=== PATIENT | female | born 1960 | race Caucasian/White ===

== ENCOUNTER 2019-01-30 12:18 | Emergency (ER) | payer BC ==
--- NOTE | 2019-01-30 13:04 | EDM.PDOC ---
ED HPI GENERAL MEDICAL PROBLEM - General Chief Complaint: General Stated Complaint: BLLOD PRESSURE,DISSINESS,BLURED VISION Time Seen by Provider: 01/30/19 12:57 Source of Information: Reports: Patient History Limitations: Reports: No Limitations - History of Present Illness INITIAL COMMENTS - FREE TEXT/NARRATIVE: Patient is a 58-year-old female who presents to the emergency department this afternoon with a complaint of high blood pressure. She states that she had a headache earlier today, presenting to [facility] and they took her blood pressure. Blood pressure was said to be 180s over 100. They suggested she be seen in the ER. Upon presentation to ER. Her blood pressure evaluation showed 150s over 100. Patient is currently on 20 mg lisinopril daily, and 25 mg metoprolol twice a day. Patient is also on 1000 metformin twice a day. Patient denies any recent change in medication. Patient admits to headache over the last week, but adenies chest pain, shortness of breath, blurry vision, nausea, vomiting, diarrhea, lower extremity edema, out of country travel, or any head injury. Duration: Hour(s): Quality: Reports: Other (Mild headache, but Denies any chest pain) Improves with: Reports: None Worsens with: Reports: None Associated Symptoms: Reports: Headaches. Denies: Chest Pain, Nausea/Vomiting, Shortness of Breath - Related Data Allergies Allergy/AdvReac Type Severity Reaction Status Date / Time Penicillins Allergy Hives Verified 01/30/19 12:32 Home Meds: Home Meds Lisinopril [Prinivil] 20 mg PO DAILY 01/30/19 [History] Metoprolol Tartrate 25 mg PO DAILY 01/30/19 [History] Simvastatin 20 mg PO DAILY 01/30/19 [History] hydroCHLOROthiazide [Hydrochlorothiazide] 25 mg PO DAILY PRN 01/30/19 [History] metFORMIN HCl [Metformin HCl] 1,000 mg PO BID 01/30/19 [History] ED ROS GENERAL - Review of Systems Review Of Systems: ROS reveals no pertinent complaints other than HPI. Constitutional: Reports: No Symptoms HEENT: Reports: No Symptoms Respiratory: Reports: No Symptoms Cardiovascular: Reports: No Symptoms. Denies: Chest Pain Endocrine: Reports: No Symptoms GI/Abdominal: Reports: No Symptoms : Reports: No Symptoms Musculoskeletal: Reports: No Symptoms Skin: Reports: No Symptoms Neurological: Reports: Headache Psychiatric: Reports: No Symptoms Hematologic/Lymphatic: Reports: No Symptoms Immunologic: Reports: No Symptoms ED EXAM, GENERAL - Physical Exam Exam: See Below Exam Limited By: No Limitations General Appearance: Alert, WD/WN, No Apparent Distress Eye Exam: Bilateral Eye: Normal Inspection Nose: Normal Inspection, Normal Mucosa Throat/Mouth: Normal Inspection, Normal Oropharynx, No Airway Compromise Head: Atraumatic, Normocephalic Neck: Normal Inspection, Supple Respiratory/Chest: No Respiratory Distress, Lungs Clear, Normal Breath Sounds, No Accessory Muscle Use, Chest Non-Tender Cardiovascular: Normal Peripheral Pulses, Regular Rate, Rhythm, No Murmur, No Rub GI/Abdominal: Normal Bowel Sounds, Soft, Non-Tender, No Abnormal Bruit Back Exam: Normal Inspection. No: CVA Tenderness (L), CVA Tenderness (R) Extremities: Normal Inspection, No Pedal Edema Neurological: Alert, Oriented, CN II-XII Intact, Normal Cognition, No Motor/ Sensory Deficits Psychiatric: Normal Affect, Normal Mood Skin Exam: Warm, Dry, Intact, Normal Color, No Rash Lymphatic: No Adenopathy Course - Vital Signs Last Recorded V/S: Last Vital Signs Temp 96.7 F 01/30/19 12:22 Pulse 75 01/30/19 13:25 Resp 14 01/30/19 13:25 BP 146/96 H 01/30/19 13:25 Pulse Ox 98 01/30/19 13:25 - Orders/Labs/Meds Labs: Laboratory Tests 01/30/19 01/30/19 01/30/19 Range/Units 12:45 12:55 12:55 WBC 5.44 (5.00-10.00) 10^3/uL RBC 4.48 (3.80-5.50) 10^6/uL Hgb 12.9 (12.0-16.0) g/dL Hct 38.2 (37.0-47.0) % MCV 85.3 (82.0-92.0) fL MCH 28.8 (27.0-31.0) pg MCHC 33.8 (32.0-36.0) g/dL RDW 12.5 (11.5-14.5) % Plt Count 200 (150-400) 10^3/uL MPV 8.4 (7.4-10.4) fL Immature Gran % (Auto) 0.2 (0.0-5.0) % Neut % (Auto) 74.6 H (50.0-70.0) % Lymph % (Auto) 16.7 L (20.0-40.0) % [place] % (Auto) 6.8 (2.0-8.0) % Eos % (Auto) 1.1 (1.0-3.0) % Baso % (Auto) 0.6 (0.0-1.0) % Immature Gran # (Auto) 0.01 (0.00-0.50) 10^3/uL Neut # (Auto) 4.06 (2.50-7.00) 10^3/uL Lymph # (Auto) 0.91 L (1.00-4.00) 10^3/uL [place] # (Auto) 0.37 (0.10-0.80) 10^3/uL Eos # (Auto) 0.06 L (0.10-0.30) 10^3/uL Baso # (Auto) 0.03 (0.00-0.10) 10^3/uL Sodium 138 (136-145) mmol/L Potassium 4.9 (3.3-5.3) mmol/L Chloride 99 (98-115) mmol/L Carbon Dioxide 29.4 (21.0-32.0) mmol/L Anion Gap 14.5 (5-15) mmol/L BUN 18 (6-25) mg/dL Creatinine 0.67 (0.51-1.17) mg/dL Est Cr Clr Drug Dosing 75.71 mL/min Estimated GFR (MDRD) > 60 mL/min Glucose 183 H (75 - 99) mg/dL Calcium 9.2 (8.7-10.3) mg/dL Total Bilirubin 0.5 (0.2-1.0) mg/dL AST 14 L (15-37) U/L ALT 32 (12-78) U/L Alkaline Phosphatase 86 (46-116) IU/L Total Protein 7.3 (6.4-8.2) g/dL Albumin 3.95 (3.00-4.80) g/dL Specimen Type . Urine Color Yellow (YELLOW) Urine Appearance Slightly cloudy H (CLEAR) Urine pH 5.5 (5.0-9.0) Ur Specific [place] >= 1.030 (1.005-1.030) Urine Protein Trace H (NEGATIVE) mg/dL Urine Glucose (UA) Negative (NEGATIVE) mg/dL Urine Ketones Trace H (NEGATIVE) mg/dL Urine Occult Blood Negative (NEGATIVE) Urine Nitrite Negative (NEGATIVE) Urine Bilirubin Small H (NEGATIVE) Urine Urobilinogen 0.2 (0.2-1.0) E.U./dL Ur Leukocyte Esterase Negative (NEGATIVE) Urine RBC 0-5 (0-5) /HPF Urine WBC 0-5 (0-5) /HPF Ur Epithelial Cells Moderate H /LPF Urine Bacteria Few (NONE TO FEW) /HPF - Radiology Interpretation Free Text/Narrative:: Dissection shows no acute cardiopulmonary process - Re-Assessments/Exams Free Text/Narrative Re-Assessment/Exam: 01/30/19 13:30 Patient afebrile, vital signs stable, blood pressure 140 over 90s, patient denies chest pain or shortness of breath. Left patient follow-up with PCP for recommendations on blood pressure medicine regimen. Departure - Departure Time of Disposition: 13:32 Disposition: Home, Self-Care 01 Condition: Good Clinical Impression: Hypertension screening - Discharge Information Instructions: Hypertension, [id number] Referrals: Vee Javed DO [Primary Care Provider] - Forms: ED Department Discharge Additional Instructions: Follow-up with primary care next 2-3 days. Medication as directed. Check blood pressure daily. Return to emergency department sooner if symptoms continue or worsen. - Assessment/Plan Assessment:: Hypertensive screening Plan: Follow-up with PCP
--- NOTE | 2019-01-30 13:21 | CR ---
[id number] RAD/RAD Chest PA And Lateral EXAM: RAD Chest PA And Lateral CLINICAL DATA: NAUSEA ELEVATED BLOOD PRESSURE COMPARISON: NO PREVIOUS SIMILAR EXAM IS AVAILABLE. FINDINGS: The lungs are clear. The cardiomediastinal contour is mildly prominent. The regional bones and soft tissues are unremarkable. IMPRESSION: NO ACUTE PROCESS. Goyo Garcia MD 01/30/19 [id number] Thank you for allowing us to participate in the care of your patient.
[2019-01-30 13:24] LABS: ANION GAP 14.5 mmol/L (5-15); CHLORIDE,CL 99 mmol/L (98-115); SODIUM,NA 138 mmol/L (136-145)
== END 2019-01-30 13:41 | disposition home or self-care (01) ==
LOC: KA.ED 12:18
DX: I10 Essential (primary) hypertension (principal); Z88.0 Allergy status to penicillin; Z79.899 Other long term (current) drug therapy
CPT/HCPCS: 36415; 71046; 80053; 81001; 85025; 99284-25